=== PATIENT | male | born 1985 | race Caucasian/White ===

== ENCOUNTER 2018-11-22 17:58 | Emergency (ER) | payer BC ==
[~2018-11-22] VITALS: Ht 180.3 cm; Wt 97.5 kg
[2018-11-22] MEDS ORDERED: IV NORMAL SALINE 1000ML BAG 1,000 ML IV ONE (18:30)
[2018-11-22 18:43] LABS: BASO % 0 % (0-3); EOS # 0.1 x10^3/uL (0.0-0.7); EOS % 1 % (0-3); HEMATOCRIT 46.5 % (39.0-53.0); HEMOGLOBIN 16.2 g/dL (13.0-17.5); LYMPH # 2.4 x10^3/uL (1.0-4.8); LYMPH % 21 % (24-48); MEAN CORPUSCULAR HEMOGLOBIN 31 pg (25-35); MEAN CORPUSCULAR HGB CONC 35 g/dL (31-37); MEAN CORPUSCULAR VOLUME 88 fL (79-100); MONO # 0.7 x10^3/uL (0.0-1.1); MONO % 6 % (0-9); NEUT # 8.2 x10^3uL (1.8-7.7); NEUT % 71 % (31-73); PLATELET COUNT 233 x10^3/uL (140-400); RED BLOOD COUNT 5.28 x10^6/uL (4.30-5.70); RED CELL DISTRIBUTION WIDTH 12.9 % (11.5-14.5); WHITE BLOOD COUNT 11.5 x10^3/uL (4.0-11.0)
--- NOTE | 2018-11-22 18:48 | RAD ---
Chest, PA and Lateral: Technique: PA and lateral views of the chest were obtained. History: Palpitations. Comparison: None. Findings: The heart and pulmonary vasculature appear within normal limits. The lungs are clear. The pleural margins are clear. Impression: No acute chest process is seen. Electronically signed by: Jd Hart MD (11/22/2018 6:43 PM) [id number]
[2018-11-22 18:53] LABS: CALCIUM 9.1 mg/dL (8.5-10.1); CREATININE 1.1 mg/dL (0.7-1.3); GFR 78.6; POTASSIUM 3.7 mmol/L (3.5-5.1)
[2018-11-22 18:58] LABS: BILIRUBIN,URINE NEGATIVE (NEG); CLARITY,URINE CLEAR; NITRITE,URINE NEGATIVE (NEG); PH,URINE 5.5; PROTEIN,URINE NEGATIVE (NEG-TRACE); UROBILINOGEN,URINE 0.2 mg/dL (0.2 mg/dL)
[2018-11-22 19:03] LABS: BARBITURATES NEG (NEG); BENZODIAZEPINES NEG (NEG); CANNABINOIDS NEG (NEG); COCAINE NEG (NEG); METHADONE NEG (NEG); OPIATES NEG (NEG); PHENCYCLIDINE NEG (NEG)
[2018-11-22 19:04] LABS: AMPHETAMINE/METHAMPHETAMINE NEG (NEG)
[2018-11-22 19:06] LABS: ALBUMIN 3.8 g/dL (3.4-5.0); ALBUMIN/GLOBULIN RATIO 0.9 (1.0-1.7); MAGNESIUM 1.8 mg/dL (1.8-2.4); TOTAL BILIRUBIN 0.2 mg/dL (0.2-1.0); TOTAL PROTEIN 8.2 g/dL (6.4-8.2)
[2018-11-22 19:09] LABS: BACTERIA,URINE 0 /HPF (0-FEW); COLOR,URINE STRAW; WBC,URINE 0 /HPF (0-4)
[2018-11-22] MEDS ORDERED: ALPR0.5T PO (19:30)
--- NOTE | 2018-11-22 19:31 | PHYS DOC ---
Past Medical History Past Medical History: Anxiety Past Surgical History: No Surgical History Alcohol Use: Occasionally Drug Use: None Adult General Chief Complaint Chief Complaint: Palpitations HPI HPI Patient is a 32 year old male who presents with a feeling of having palpitations. The patient has a long history with anxiety. He states that he has been under a lot of stress and very anxious recently. He states that he noticed that he started having an irregular heart rhythm. He did take someone's Xanax and states that he did get some rest using the Xanax. He states that he did used to take medication for anxiety but has not taken it in years. He also at that time was evaluated for cardiac problems and was found to have a negative cardiac workup. He denies diaphoresis, shortness of breath or radiating chest pain. He has no family cardiac history. Review of Systems Review of Systems Constitutional: Denies fever or chills [] Eyes: Denies change in visual acuity, redness, or eye pain [] HENT: Denies nasal congestion or sore throat [] Respiratory: Denies cough or shortness of breath [] Cardiovascular: No additional information not addressed in HPI [] GI: Denies abdominal pain, nausea, vomiting, bloody stools or diarrhea [] : Denies dysuria or hematuria [] Musculoskeletal: Denies back pain or joint pain [] Integument: Denies rash or skin lesions [] Neurologic: Denies headache, focal weakness or sensory changes [] Endocrine: Denies polyuria or polydipsia [] All other systems were reviewed and found to be within normal limits, except as documented in this note. Current Medications Current Medications Current Medications Medications (Trade) Dose Ordered Sig/Manisha Start Time Stop Time Status Last Admin Dose Admin Lorazepam (Ativan) 1 mg PRN Q4HRS PRN 11/22/18 18:30 11/22/18 19:48 DC 11/22/18 18:49 1 MG Sodium Chloride 1,000 ml @ 1,000 mls/hr 1X ONCE 11/22/18 18:30 11/22/18 19:29 DC 11/22/18 18:49 1,000 MLS/HR Allergies Allergies Allergies Coded Allergies Type Severity Reaction Last Updated Verified No Known Drug Allergies 11/22/18 No Physical Exam Physical Exam Constitutional: Well developed, well nourished, no acute distress, non-toxic appearance. [] Cardiovascular:Heart rate regular rhythm with occasional PVCs noted, no murmur [ ] Lungs & Thorax: Bilateral breath sounds clear to auscultation [] Abdomen: Bowel sounds normal, soft, no tenderness, no masses, no pulsatile masses. [] Skin: Warm, dry, no erythema, no rash. [] Back: No tenderness, no CVA tenderness. [] Extremities: No tenderness, no cyanosis, no clubbing, ROM intact, no edema. [] Neurologic: Alert and oriented X 3, normal motor function, normal sensory function, no focal deficits noted. [] Psychologic: The patient is anxious in the room. Current Patient Data Vital Signs Vital Signs Date Time Temp Pulse Resp B/P (MAP) Pulse Ox O2 Delivery O2 Flow Rate FiO2 11/22/18 19:35 93 18 139/65 (89) 98 Room Air 11/22/18 18:25 97.9 97.9 Lab Values Laboratory Tests Test 11/22/18 18:17 11/22/18 18:20 White Blood Count 11.5 x10^3/uL (4.0-11.0) H Red Blood Count 5.28 x10^6/uL (4.30-5.70) Hemoglobin 16.2 g/dL (13.0-17.5) Hematocrit 46.5 % (39.0-53.0) Mean Corpuscular Volume 88 fL (79-100) Mean Corpuscular Hemoglobin 31 pg (25-35) Mean Corpuscular Hemoglobin Concent 35 g/dL (31-37) Red Cell Distribution Width 12.9 % (11.5-14.5) Platelet Count 233 x10^3/uL (140-400) Neutrophils (%) (Auto) 71 % (31-73) Lymphocytes (%) (Auto) 21 % (24-48) L Monocytes (%) (Auto) 6 % (0-9) Eosinophils (%) (Auto) 1 % (0-3) Basophils (%) (Auto) 0 % (0-3) Neutrophils # (Auto) 8.2 x10^3uL (1.8-7.7) H Lymphocytes # (Auto) 2.4 x10^3/uL (1.0-4.8) Monocytes # (Auto) 0.7 x10^3/uL (0.0-1.1) Eosinophils # (Auto) 0.1 x10^3/uL (0.0-0.7) Basophils # (Auto) 0.0 x10^3/uL (0.0-0.2) Sodium Level 138 mmol/L (136-145) Potassium Level 3.7 mmol/L (3.5-5.1) Chloride Level 104 mmol/L (98-107) Carbon Dioxide Level 27 mmol/L (21-32) Anion Gap 7 (6-14) Blood Urea Nitrogen 18 mg/dL (8-26) Creatinine 1.1 mg/dL (0.7-1.3) Estimated GFR (Cockcroft-Gault) 78.6 BUN/Creatinine Ratio 16 (6-20) Glucose Level 135 mg/dL (70-99) H Calcium Level 9.1 mg/dL (8.5-10.1) Magnesium Level 1.8 mg/dL (1.8-2.4) Total Bilirubin 0.2 mg/dL (0.2-1.0) Aspartate Amino Transferase (AST) 39 U/L (15-37) H Alanine Aminotransferase (ALT) 71 U/L (16-63) H Alkaline Phosphatase 77 U/L (46-116) Troponin I Quantitative < 0.017 ng/mL (0.000-0.055) Total Protein 8.2 g/dL (6.4-8.2) Albumin 3.8 g/dL (3.4-5.0) Albumin/Globulin Ratio 0.9 (1.0-1.7) L Urine Collection Type Unknown Urine Color Straw Urine Clarity Clear Urine pH 5.5 Urine Specific [place] 1.010 Urine Protein Negative mg/dL (NEG-TRACE) Urine Glucose (UA) Negative mg/dL (NEG) Urine Ketones (Stick) Negative mg/dL (NEG) Urine Blood Moderate (NEG) Urine Nitrite Negative (NEG) Urine Bilirubin Negative (NEG) Urine Urobilinogen Dipstick 0.2 mg/dL (0.2 mg/dL) Urine Leukocyte Esterase Negative (NEG) Urine RBC 3-5 /HPF (0-2) Urine WBC 0 /HPF (0-4) Urine Squamous Epithelial Cells None /LPF Urine Bacteria 0 /HPF (0-FEW) Urine Opiates Screen Neg (NEG) Urine Methadone Screen Neg (NEG) Urine Barbiturates Neg (NEG) Urine Phencyclidine Screen Neg (NEG) Urine Amphetamine/Methamphetamine Neg (NEG) Urine Benzodiazepines Screen Neg (NEG) Urine Cocaine Screen Neg (NEG) Urine Cannabinoids Screen Neg (NEG) Urine Ethyl Alcohol Neg (NEG) Laboratory Tests 11/22/18 18:17 Laboratory Tests 11/22/18 18:17 EKG EKG [] Radiology/Procedures Radiology/Procedures [] Course & Med Decision Making Course & Med Decision Making Pertinent Labs and Imaging studies reviewed. (See chart for details) []There was no acute coronary process noted on exam or in labs or imaging. The patient was given a prescription for antianxiety medication. He has been counseled to follow up with [facility] as well as his primary care provider for further evaluation and management of his symptoms. He is in agreement with this plan. He has been instructed to call 911 or return to the emergency department immediately if worsening. Dragon Disclaimer Dragon Disclaimer This electronic medical record was generated, in whole or in part, using a voice recognition dictation system. Departure Departure Impression: Primary Impression: Anxiety Additional Impression: Premature ventricular contraction Disposition: 01 HOME, SELF-CARE Condition: STABLE Referrals: ANTHONY BARRERA MD (PCP) Patient Instructions: Anxiety and Panic Attacks, Premature Ventricular Contraction Additional Instructions: Use the medication as needed for panic attacks. You are having PVCs. These can be caused by anxiety itself. Stop taking the supplements that you began. Follow- up with your primary care provider for further evaluation of your anxiety and PVCs. If worsening return to the emergency department. Scripts Alprazolam (XANAX) 0.5 Mg Tablet 0.5 MG PO PRN Q6HRS PRN for ANXIETY / AGITATION, #14 TAB 0 Refills Prov: CJ YA APRN 11/22/18 Problem Qualifiers CJ YA APRN Nov 22, 2018 19:31
[2018-11-22 19:35] VITALS: BP 139/65
--- NOTE | 2018-11-24 06:56 | EKG ---
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
== END 2018-11-22 19:35 | disposition home or self-care (01) ==
LOC: ER 17:58
DX: I49.3 Ventricular premature depolarization (principal); F41.9 Anxiety disorder, unspecified
CPT/HCPCS: 36415; 71046; 80053; 80307; 81001; 83735; 84484; 85025; 93005; 96374; 99284; J2060; J7030